=== PATIENT | male | born 1935 ===

== ENCOUNTER 2018-11-21 09:14 | Outpatient (CLI) | payer OTHER ==
[~2018-11-21] VITALS: Ht 152.4 cm; Wt 79.4 kg
== END 2018-11-21 09:30 | disposition home or self-care (01) ==
LOC: OFIC 805 09:14
DX: M26.69 Other specified disorders of temporomandibular joint (principal); H90.3 Sensorineural hearing loss, bilateral; J31.0 Chronic rhinitis; H69.83 Other specified disorders of Eustachian tube, bilateral